=== PATIENT | male | born 1950 | race Caucasian/White ===

== ENCOUNTER 2017-12-07 11:04 | Inpatient (IN) | payer MEDICARE ==
[2017-12-04 14:41] LABS: ALBUMIN 3.7 g/dL (3.4-5.0); ANION GAP 8 mmol/L (5-15); CALCIUM 8.8 mg/dL (8.5-10.1); CHLORIDE 107 mmol/L (98-107)
[2017-12-04 14:44] LABS: ALANINE AMINOTRANSFERASE 44 U/L (12-78); ALKALINE PHOSPHATASE 75 U/L (45-117); BILIRUBIN,TOTAL 0.8 mg/dL (0.2-1.0); CREATININE 1.13 mg/dL (0.7-1.3); TOTAL PROTEIN 7.8 g/dL (6.4-8.2)
[2017-12-04 18:45] VITALS: BP 143/74
[~2017-12-07] VITALS: Ht 185.4 cm; Wt 109.0 kg
[~2017-12-07 11:04] MED LIST: BIOT25005 PO; CHOL10003 PO; LISI-167 PO; OMEG-123 PO
[2017-12-07] MEDS ORDERED: MIDAZOLAM 1 MG/ML, 2ML ONE (11:41)
[2017-12-07] MEDS ORDERED: FENTANYL PF 250 MCG/5ML ONE (11:41)
[2017-12-07] MEDS ORDERED: LACTATED RINGERS 1,000 ML IV SCH (11:50)
[2017-12-07] MEDS ORDERED: FAMOTIDINE 20 MG TABLET ONE (11:55)
[2017-12-07] MEDS ORDERED: OxyconTIN ER 10 MG TAB.ER ONE (11:55)
[2017-12-07] MEDS ORDERED: GABAPENTIN 300 MG CAPSULE ONE (11:56)
[2017-12-07] MEDS ORDERED: ACETAMINOPHEN 500 MG TABLET ONE (11:56)
[2017-12-07] MEDS ORDERED: OxyconTIN ER 10 MG TAB.ER PO ONE (12:00)
[2017-12-07] MEDS ORDERED: FAMOTIDINE 20 MG TABLET PO ONE (12:00)
[2017-12-07] MEDS ORDERED: GABAPENTIN 300 MG CAPSULE PO ONE (12:00)
[2017-12-07] MEDS ORDERED: ACETAMINOPHEN 500 MG TABLET PO ONE (12:00)
[2017-12-07 12:07] VITALS: BP 139/76
[2017-12-07] MEDS ORDERED: LIDOCAINE/PF 1%, 30ML ONE (12:52)
[2017-12-07] MEDS ORDERED: BUPIVACAINE/PF 0.5% ONE (12:52)
[2017-12-07] MEDS ORDERED: VANCOMYCIN 1,000 MG ONE (12:52)
[2017-12-07] MEDS ORDERED: DEXAMETHASONE 4 MG/ML, 1ML ONE (13:12)
[2017-12-07] MEDS ORDERED: CEFAZOLIN 1,000 MG ONE (13:12)
[2017-12-07] MEDS ORDERED: PROPOFOL 10 MG/ML, 20ML ONE (13:12)
[2017-12-07] MEDS ORDERED: LABETALOL 5MG/ML 40ML VIAL ONE (13:12)
[2017-12-07] MEDS ORDERED: MEPERIDINE/PF 25MG/0.5ML IVPush PRN (14:00)
[2017-12-07] MEDS ORDERED: OXYcodone 5 MG/5 ML ORAL.SOL UDC PO PRN (14:00)
[2017-12-07] MEDS ORDERED: MORPHINE SULFATE 4 MG/ML, 1ML IVPush PRN (14:00)
[2017-12-07] MEDS ORDERED: FENTANYL PF 100 MCG/2ML IV PRN (14:00)
[2017-12-07] MEDS ORDERED: ONDANSETRON ODT 8 MG PO PRN (14:00)
[2017-12-07] MEDS ORDERED: PROMETHAZINE 25 MG/ML, 1ML IV PRN (14:00)
[2017-12-07] MEDS ORDERED: ROPIvacaine/PF 0.2%, 100ML 550 ML (check volume) INJ ONE (15:00)
[2017-12-07] MEDS ORDERED: TRANEXAMIC ACID 100 MG/ML, 10ML ONE ×2 (15:07)
[2017-12-07 18:45] VITALS: BP 143/74
[2017-12-07] MEDS ORDERED: HYDROcodone/APAP 5/325 TABLET PO PRN (19:30)
[2017-12-07] MEDS ORDERED: ONDANSETRON 2MG/ML, 2ML IV PRN (19:30)
[2017-12-07] MEDS ORDERED: HYDROmorphone 1 MG/ML, 1ML IV PRN (19:30)
[2017-12-07] MEDS ORDERED: CEFAZOLIN 1,000 MG in SODIUM CHLORIDE 0.9% 50 ML IVPB SCH (19:30)
[2017-12-07] MEDS ORDERED: OXYcodone/APAP 5/325MG TABLET PO PRN (19:30)
[2017-12-07] MEDS ORDERED: ACETAMINOPHEN 325 MG TABLET PO PRN (19:30)
[2017-12-07] MEDS: SODIUM CHLORIDE FLUSH 10ML SYR IVF SCH (21:00)
[2017-12-08 00:46] VITALS: BP 153/80
[2017-12-08 04:33] VITALS: BP 125/62
[2017-12-08 09:01] VITALS: BP 147/78
[2017-12-08] MEDS: SODIUM CHLORIDE FLUSH 10ML SYR IVF SCH (10:22)
[2017-12-08 11:52] VITALS: BP 142/80
== END 2017-12-08 12:40 | disposition home or self-care (01) | DRG 469 ==
LOC: ORIP 11:04 → 4NOR 18:45
PROVIDERS: ADMIT Orthopaedic Surgery; ATTEND Orthopaedic Surgery
PROC: 0LSN0ZZ Reposition Right Lower Leg Tendon, Open Approach (ICD-10-PCS; 2017-12-07)
PROC: 0MQQ0ZZ Repair Right Ankle Bursa and Ligament, Open Approach (ICD-10-PCS; 2017-12-07)
PROC: 0QSL04Z Reposition Right Tarsal with Internal Fixation Device, Open Approach (ICD-10-PCS; 2017-12-07)
PROC: 0SRF0JZ Replacement of Right Ankle Joint with Synthetic Substitute, Open Approach (ICD-10-PCS; principal; 2017-12-07 12:45)
DX: M19.071 Primary osteoarthritis, right ankle and foot (principal); Q66.7 Congenital pes cavus
CPT/HCPCS: 36415; 76001; 80053; 93005; C1713; J0690; J1100; J2250; J2704; J2795; J3010; J3370; J3490; C1776; J7120